=== PATIENT | male | born 2000 | race Caucasian/White ===

== ENCOUNTER 2022-02-10 00:42 | Emergency (ER) | payer BC ==
[2022-02-10 02:51] LABS: SARS-CoV-2 NAA Rapid Test Not Detected (NotDetected)
[2022-02-10] MEDS ORDERED: Dexamethasone 10 MG/ML VIAL ONE (04:03)
[2022-02-10] MEDS ORDERED: Metoclopramide HCl 10 MG/2 ML VIAL ONE (04:03)
[2022-02-10] MEDS ORDERED: Ketorolac Tromethamine 30 MG/ML VIAL ONE (04:04)
== END 2022-02-10 05:27 | disposition home or self-care (01) ==
LOC: CSHERS 00:42
DX: B34.9 Viral infection, unspecified (principal); Z20.822 Contact with and (suspected) exposure to COVID-19; Z87.891 Personal history of nicotine dependence
CPT/HCPCS: 96374; 96375; J1100; J1885; J2765